=== PATIENT | male | born 1960 | race Caucasian/White ===

== ENCOUNTER 2017-06-26 12:04 | Emergency (ER) | payer MEDICAID, OTHER ==
[~2017-06-26] VITALS: Ht 170.2 cm; Wt 83.6 kg
[2017-06-26 12:15] VITALS: BP 145/111
[2017-06-26] MEDS ORDERED: BUPIVACAINE 0.5% IV ONE (12:35)
[2017-06-26] MEDS ORDERED: EPINEPHRINE IV ONE (12:35)
[2017-06-26] MEDS ORDERED: BUPIVAcaine 0.5% inj/PF 30 ml vial IJ ONE (12:45)
[2017-06-26] MEDS ORDERED: CEPH-572 PO (13:06)
== END 2017-06-26 13:23 | disposition home or self-care (01) ==
LOC: ER 12:06
DX: L02.212 Cutaneous abscess of back [any part, except buttock and flank] (principal)
CPT/HCPCS: 10060; 99283; A6266; A6449; J3490; J0171

== ENCOUNTER 2018-10-17 01:08 | Inpatient (IN) | payer MEDICAID, OTHER ==
[2018-10-17] VITALS (14 sets, daily range): BP systolic 108–145; BP diastolic 62–88
[~2018-10-17] VITALS: Ht 170.2 cm; Wt 79.0 kg
[2018-10-17] MEDS ORDERED: aspirin 81mg tab.chew PO ONE (01:15)
[2018-10-17] MEDS ORDERED: LIDOcaine Viscous 15ml cup PO ONE (01:30)
[2018-10-17] MEDS ORDERED: famotidine 20mg tablet PO ONE (01:30)
[2018-10-17] MEDS ORDERED: mag hydrox/Alum hydrox/simeth 30ml oral suspension PO ONE (01:30)
[2018-10-17] MEDS ORDERED: aspirin 325mg tablet PO ONE (01:30)
[2018-10-17 01:37] LABS: BASOPHILS # (AUTO) 0.1 X10'3 (0-0.2); BASOPHILS % (AUTO) 0.6 % (0-1); EOSINOPHILS # (AUTO) 0.2 X10'3 (0-0.9); EOSINOPHILS % (AUTO) 2.2 % (0-6); HEMATOCRIT 47.4 % (42.0-52.0); HEMOGLOBIN 16.5 g/dl (14.0-17.9); LYMPHOCYTES # (AUTO) 1.8 X10'3 (1.1-4.8); MEAN CORPUSCULAR HEMOGLOBIN 31.3 PG (27.0-31.0); MEAN CORPUSCULAR HGB CONC 34.7 g/dL (33.0-36.5); MEAN CORPUSCULAR VOLUME 90.1 FL (78-98); MEAN PLATELET VOLUME 8.6 FL (7.4-10.4); MONOCYTES % (AUTO) 9.4 % (2-12); NEUTROPHILS # (AUTO) 7.4 X10'3 (1.8-7.7); NEUTROPHILS % (AUTO) 70.8 % (42-75); PLATELET COUNT 219 X10'3 (140-440); RED BLOOD COUNT 5.26 X10'6 (4.70-6.10); RED CELL DISTRIBUTION WIDTH 13.8 % (11.5-14.5); WHITE BLOOD COUNT 10.4 X10'3 (4.5-11.0)
[2018-10-17 01:42] LABS: PARTIAL THROMBOPLASTIN TIME 27 SECONDS (22-32)
[2018-10-17 01:44] LABS: ALANINE AMINOTRANSFERASE 44 U/L (12-78); ALBUMIN 3.7 G/DL (3.4-5.0); ALBUMIN/GLOBULIN RATIO 1.1 (1.1-1.5); ALKALINE PHOSPHATASE 117 IU/L (46-116); ANION GAP 9 (8-16); ASPARTATE AMINO TRANSFERASE 18 U/L (10-37); BILIRUBIN,TOTAL 0.5 MG/DL (0.1-1.0); BLOOD UREA NITROGEN 16 MG/DL (7-18); BUN/CREATININE RATIO 15.2 (5.4-32.0); CALCIUM 8.7 MG/DL (8.5-10.1); CHLORIDE 107 MMOL/L (99-107); CREATININE 1.05 MG/DL (0.60-1.10); GLUCOSE 124 MG/DL (70-104); POTASSIUM 3.9 MMOL/L (3.5-5.1); SODIUM 141 MMOL/L (135-145); TOTAL PROTEIN 7.1 G/DL (6.4-8.2); eGFR 73 ML/MIN
[2018-10-17] MEDS ORDERED: heparin 10,000 units/1 ML INJ IV PRN ×2 (03:30→03:50)
[2018-10-17] MEDS ORDERED: heparin 10,000 units/1 ML INJ IV ONE ×3 (03:30→03:50)
[2018-10-17] MEDS ORDERED: LORazepam 2 mg/ml vial IV ONE (03:35)
[2018-10-17] MEDS ORDERED: heparin 25,000 UNIT/250ml bag 250 ML IV SCH (03:48)
[2018-10-17] MEDS ORDERED: magnesium 4gm in 100ml NS 100 ML IV PRN (03:50)
[2018-10-17] MEDS ORDERED: magnesium 2GM in 50ml NS 50 ML IV PRN (03:50)
[2018-10-17] MEDS ORDERED: potassium CL 10mEq/100ml bag 100 ML IV PRN ×2 (03:50)
[2018-10-17] MEDS ORDERED: magnesium Cl slow-release 64mg tablet PO PRN (03:50)
[2018-10-17] MEDS ORDERED: acetaminophen 650mg rectal suppository RC PRN (03:50)
[2018-10-17] MEDS ORDERED: bisacodyl 10mg suppository rectal RC PRN (03:50)
[2018-10-17] MEDS ORDERED: potassium Cl 20 mEq SR tablet PO PRN ×2 (03:50)
[2018-10-17] MEDS: heparin 25,000 UNIT/250ml bag 250 ML IV SCH (03:51)
[2018-10-17] MEDS: nitroGLYCERIN 0.4mg SUBLingual tab SL PRN ×2 (04:03→04:17)
--- NOTE | 2018-10-17 04:32 | NUR ---
Patient arrived from ER on a gurney, he was able to walk to hospital bed w/o problem. He is A&Ox3, KYLE and is appropriate. I will continue to monitor.
[2018-10-17 04:45] LABS: BASOPHILS % (AUTO) 0.4 % (0-1); EOSINOPHILS # (AUTO) 0.2 X10'3 (0-0.9); EOSINOPHILS % (AUTO) 1.9 % (0-6); HEMATOCRIT 43.7 % (42.0-52.0); HEMOGLOBIN 15.2 g/dl (14.0-17.9); LYMPHOCYTES # (AUTO) 1.9 X10'3 (1.1-4.8); LYMPHOCYTES % (AUTO) 19.7 % (21-51); MEAN CORPUSCULAR HEMOGLOBIN 31.5 PG (27.0-31.0); MEAN CORPUSCULAR HGB CONC 34.7 g/dL (33.0-36.5); MEAN CORPUSCULAR VOLUME 90.6 FL (78-98); MONOCYTES # (AUTO) 0.8 X10'3 (0-0.9); MONOCYTES % (AUTO) 7.8 % (2-12); NEUTROPHILS % (AUTO) 70.2 % (42-75); PLATELET COUNT 210 X10'3 (140-440); RED BLOOD COUNT 4.82 X10'6 (4.70-6.10); RED CELL DISTRIBUTION WIDTH 13.8 % (11.5-14.5); WHITE BLOOD COUNT 9.9 X10'3 (4.5-11.0)
[2018-10-17] MEDS ORDERED: LORazepam 2 mg/ml vial IV PRN (04:45)
[2018-10-17] MEDS: normal saline 1000ml 1,000 ML IV SCH ×3 (05:21→23:48)
[2018-10-17 05:56] LABS: CHOL/HDL RATIO 4.5 (0.00-4.99); CHOLESTEROL 176 MG/DL (0-200); HDL CHOLESTEROL 39 MG/DL (35-60); LDL CHOLESTEROL 115 MG/DL (50-100); TRIGLYCERIDES 83 MG/DL (20-135)
--- NOTE | 2018-10-17 06:10 | NUR ---
Patient's Troponin 0.30, I paged Dr. Reyes.
--- NOTE | 2018-10-17 06:16 | NUR ---
Dr. Reyes cld back and I informed him of Troponin 0.30. he will call for cardiology consult.
--- NOTE | 2018-10-17 06:30 | NUR ---
Patient in room PCU 3017. I have received report from Adwoa and had the opportunity to ask questions and assume patient care.
[2018-10-17] MEDS ORDERED: NO HOME MEDS (07:39)
[2018-10-17] MEDS: K and/or MAG REPLACEMENT MC SCH (08:00)
[2018-10-17] MEDS: multivitamins, therapeutics tablet PO SCH (08:13)
[2018-10-17] MEDS: thiamine 100mg tablet PO SCH (08:13)
[2018-10-17] MEDS: folic acid 1mg tablet PO SCH (08:14)
[2018-10-17] MEDS ORDERED: nitroGLYCERIN 0.4mg/hour patch TD ONE (09:00)
[2018-10-17] MEDS ORDERED: PRED5DRO23 RIGHTEYE (10:48)
[2018-10-17] MEDS ORDERED: VIG0.5OS RIGHTEYE (10:50)
--- NOTE | 2018-10-17 10:53 | NUR ---
PAGER ID: [phone] MESSAGE: [id number] Maki Jarrett. Please review med req, brought in pt's eye drops, says he needs them. Marisa [phone]
[2018-10-17] MEDS: LORazepam 1 MG tablet PO PRN ×2 (11:45→18:51)
[2018-10-17] MEDS: moxifloxacin 0.5% ophthalmic drops 3ml RIGHTEYE SCH ×3 (12:19→20:30)
[2018-10-17] MEDS: prednisoLONE acetate 1% ophth susp 5ml RIGHTEYE SCH ×3 (12:20→20:29)
--- NOTE | 2018-10-17 13:55 | NUR ---
pt report received from Marisa SCOTT; all questions answered.
--- NOTE | 2018-10-17 13:58 | NUR ---
Report and stocked meds given to Katey SCOTT
[2018-10-17] MEDS ORDERED: LIDOcaine 1% (10mg/ml)w/preservative injection 20ml MDV ONE (14:27)
[2018-10-17] MEDS ORDERED: iohexol 350 MG/ML 50ML vial IV ONE (14:27)
[2018-10-17] MEDS ORDERED: fentaNYL/PF 50MCG/1 ML 2ML syringe ONE ×2 (14:27→15:19)
[2018-10-17] MEDS ORDERED: midazolam 2 mg/2 ml injection ONE ×2 (14:27→15:19)
[2018-10-17] MEDS ORDERED: iohexol 350MG/ML 100ml bottle IV ONE (14:27)
[2018-10-17] MEDS ORDERED: nitroGLYCERIN 0.4mg SUBLingual tab SL PRN (16:15)
[2018-10-17] MEDS ORDERED: proCHLORperazine 10 MG/2 ml inj IV PRN (16:15)
--- NOTE | 2018-10-17 16:15 | NUR ---
pt arrived to floor via hospital bed; VSS. NS started at 100mL/hr. rt groin soft, no hematoma, no bruising, and no drainage present; strong pedal pulses. pt attached to cardiac monitoring.
[2018-10-17] MEDS: ondansetron/PF 4mg/2ml inj IV PRN (17:18)
--- NOTE | 2018-10-17 18:17 | NUR ---
Patient in room MED 316. I have received report from Van SCOTT and had the opportunity to ask questions and assume patient care.
[2018-10-17] MEDS: clopidogrel 75mg tablet PO SCH (18:23)
--- NOTE | 2018-10-17 18:38 | NUR ---
Patient report given, questions answered & plan of care reviewed with Lynne SCOTT.
[2018-10-17] MEDS: HYDROcodone/acetaminophen 10/325mg tab PO PRN (18:52)
[2018-10-17] MEDS: carVEDilol 3.125mg tablet PO SCH (20:28)
[2018-10-17] MEDS: acetaminophen 325mg tablet PO PRN (20:39)
[2018-10-18] VITALS (12 sets, daily range): BP systolic 94–129; BP diastolic 57–91
[2018-10-18] MEDS: heparin 25,000 UNIT/250ml bag 250 ML IV SCH ×2 (04:29→13:45)
[2018-10-18 05:54] LABS: BASOPHILS % (AUTO) 0.4 % (0-1); EOSINOPHILS % (AUTO) 0.3 % (0-6); HEMATOCRIT 43.3 % (42.0-52.0); HEMOGLOBIN 14.9 g/dl (14.0-17.9); LYMPHOCYTES # (AUTO) 1.5 X10'3 (1.1-4.8); LYMPHOCYTES % (AUTO) 13.4 % (21-51); MEAN CORPUSCULAR HEMOGLOBIN 30.9 PG (27.0-31.0); MEAN CORPUSCULAR HGB CONC 34.3 g/dL (33.0-36.5); MEAN PLATELET VOLUME 8.6 FL (7.4-10.4); MONOCYTES % (AUTO) 8.7 % (2-12); NEUTROPHILS # (AUTO) 8.9 X10'3 (1.8-7.7); NEUTROPHILS % (AUTO) 77.2 % (42-75); PLATELET COUNT 209 X10'3 (140-440); RED BLOOD COUNT 4.81 X10'6 (4.70-6.10); RED CELL DISTRIBUTION WIDTH 13.7 % (11.5-14.5); WHITE BLOOD COUNT 11.5 X10'3 (4.5-11.0)
[2018-10-18 05:55] LABS: ALANINE AMINOTRANSFERASE 40 U/L (12-78); ALBUMIN 3.3 G/DL (3.4-5.0); ALKALINE PHOSPHATASE 81 IU/L (46-116); ANION GAP 8 (8-16); ASPARTATE AMINO TRANSFERASE 23 U/L (10-37); BILIRUBIN,TOTAL 0.9 MG/DL (0.1-1.0); BLOOD UREA NITROGEN 12 MG/DL (7-18); BUN/CREATININE RATIO 14.3 (5.4-32.0); CALCIUM 8.3 MG/DL (8.5-10.1); CHLORIDE 106 MMOL/L (99-107); CREATININE 0.84 MG/DL (0.60-1.10); GLUCOSE 113 MG/DL (70-104); POTASSIUM 4.2 MMOL/L (3.5-5.1); SODIUM 139 MMOL/L (135-145); TOTAL CARBON DIOXIDE 24.7 MMOL/L (24-32); TOTAL PROTEIN 6.6 G/DL (6.4-8.2); eGFR > 90 ML/MIN
--- NOTE | 2018-10-18 06:13 | NUR ---
Problems reprioritized. Patient report given, questions answered & plan of care reviewed with Van SCOTT.
[2018-10-18] MEDS: clopidogrel 75mg tablet PO SCH (07:18)
[2018-10-18] MEDS: carVEDilol 3.125mg tablet PO SCH ×2 (07:18→20:52)
[2018-10-18] MEDS: folic acid 1mg tablet PO SCH (07:18)
[2018-10-18] MEDS: thiamine 100mg tablet PO SCH (07:18)
[2018-10-18] MEDS: aspirin 81mg tablet.DR PO SCH (07:19)
[2018-10-18] MEDS: atorvastatin 20mg tablet PO SCH (07:19)
[2018-10-18] MEDS: multivitamins, therapeutics tablet PO SCH (07:19)
[2018-10-18] MEDS: moxifloxacin 0.5% ophthalmic drops 3ml RIGHTEYE SCH ×4 (07:19→21:06)
[2018-10-18] MEDS: ondansetron/PF 4mg/2ml inj IV PRN (07:19)
[2018-10-18] MEDS: prednisoLONE acetate 1% ophth susp 5ml RIGHTEYE SCH ×4 (07:19→21:03)
[2018-10-18] MEDS: K and/or MAG REPLACEMENT MC SCH (08:00)
[2018-10-18] MEDS ORDERED: pneumococcal 23-VAL P-sac vacc 25 mcg/0.5ml vial IMVAC ONE (10:00)
--- NOTE | 2018-10-18 12:56 | NUR ---
faxed most recent EKG to Dr. Patricio' office per Dr. Hurd.
[2018-10-18] MEDS ORDERED: enoxaparin 60mg/0.6ml syringe SUBCUT STA (13:00)
[2018-10-18] MEDS ORDERED: nitroGLYCERIN-Tridil 50MG/D5W 250 ML IV SCH (13:00)
[2018-10-18] MEDS ORDERED: heparin 10,000 units/1 ML INJ IV ONE (13:10)
[2018-10-18] MEDS ORDERED: heparin 10,000 units/1 ML INJ IV PRN (13:10)
[2018-10-18] MEDS: HYDROcodone/acetaminophen 5mg/325mg tablet PO PRN (16:43)
--- NOTE | 2018-10-18 18:09 | NUR ---
Problems reprioritized. Patient report given, questions answered & plan of care reviewed with Lynne SCOTT.
--- NOTE | 2018-10-18 18:13 | NUR ---
Patient in room MED 316. I have received report from Van SCOTT and had the opportunity to ask questions and assume patient care.
--- NOTE | 2018-10-18 18:15 | NUR ---
Orientee documentation: I have reviewed and agree with interventions, assessments performed and documented by Fabi SCOTT. Orientee Medication Administration: For this medication-pass time frame, all medication were reviewed, dispensed, administered and documented per hospital policy by Fabi SCOTT .
[2018-10-18] MEDS: LORazepam 1 MG tablet PO PRN (20:51)
[2018-10-18] MEDS: acetaminophen 325mg tablet PO PRN (20:51)
[2018-10-19 02:00] VITALS: BP 98/63
[2018-10-19 02:30] LABS: BASOPHILS # (AUTO) 0.1 X10'3 (0-0.2); EOSINOPHILS # (AUTO) 0.1 X10'3 (0-0.9); EOSINOPHILS % (AUTO) 1.3 % (0-6); HEMATOCRIT 46.5 % (42.0-52.0); HEMOGLOBIN 16.2 g/dl (14.0-17.9); LYMPHOCYTES # (AUTO) 1.9 X10'3 (1.1-4.8); LYMPHOCYTES % (AUTO) 22.2 % (21-51); MEAN CORPUSCULAR HEMOGLOBIN 31.4 PG (27.0-31.0); MEAN CORPUSCULAR HGB CONC 34.9 g/dL (33.0-36.5); MEAN CORPUSCULAR VOLUME 90.1 FL (78-98); MEAN PLATELET VOLUME 8.5 FL (7.4-10.4); MONOCYTES # (AUTO) 0.9 X10'3 (0-0.9); NEUTROPHILS # (AUTO) 5.5 X10'3 (1.8-7.7); NEUTROPHILS % (AUTO) 64.5 % (42-75); PLATELET COUNT 197 X10'3 (140-440); RED BLOOD COUNT 5.16 X10'6 (4.70-6.10); RED CELL DISTRIBUTION WIDTH 13.6 % (11.5-14.5); WHITE BLOOD COUNT 8.5 X10'3 (4.5-11.0)
[2018-10-19 02:39] LABS: ALANINE AMINOTRANSFERASE 38 U/L (12-78); ALBUMIN 3.6 G/DL (3.4-5.0); ALKALINE PHOSPHATASE 80 IU/L (46-116); ANION GAP 7 (8-16); ASPARTATE AMINO TRANSFERASE 17 U/L (10-37); BILIRUBIN,TOTAL 0.7 MG/DL (0.1-1.0); BLOOD UREA NITROGEN 16 MG/DL (7-18); BUN/CREATININE RATIO 16.3 (5.4-32.0); CALCIUM 8.9 MG/DL (8.5-10.1); CHLORIDE 105 MMOL/L (99-107); CREATININE 0.98 MG/DL (0.60-1.10); GLUCOSE 114 MG/DL (70-104); MAGNESIUM 2.1 MG/DL (1.5-2.4); SODIUM 139 MMOL/L (135-145); TOTAL CARBON DIOXIDE 27.1 MMOL/L (24-32); TOTAL PROTEIN 7.3 G/DL (6.4-8.2); eGFR 79 ML/MIN
[2018-10-19 06:00] VITALS: BP_SYST 115; BP_SYST 126; BP_DIAS 71; BP_DIAS 77
--- NOTE | 2018-10-19 06:15 | NUR ---
Patient in room MED 316. I have received report from SONIA CAMARILLO and had the opportunity to ask questions and assume patient care.
--- NOTE | 2018-10-19 06:15 | NUR ---
Problems reprioritized. Patient report given, questions answered & plan of care reviewed with Van SCOTT.
[2018-10-19] MEDS: multivitamins, therapeutics tablet PO SCH (07:27)
[2018-10-19] MEDS: carVEDilol 3.125mg tablet PO SCH ×2 (07:27→20:00)
[2018-10-19] MEDS: pantoprazole 40mg Tablet.DR PO SCH (07:27)
[2018-10-19] MEDS: folic acid 1mg tablet PO SCH (07:27)
[2018-10-19] MEDS: atorvastatin 20mg tablet PO SCH (07:28)
[2018-10-19] MEDS: thiamine 100mg tablet PO SCH (07:28)
[2018-10-19] MEDS: clopidogrel 75mg tablet PO SCH (07:28)
[2018-10-19] MEDS: aspirin 81mg tablet.DR PO SCH (07:28)
[2018-10-19] MEDS: prednisoLONE acetate 1% ophth susp 5ml RIGHTEYE SCH ×4 (07:32→21:00)
[2018-10-19] MEDS: moxifloxacin 0.5% ophthalmic drops 3ml RIGHTEYE SCH ×4 (07:32→21:00)
[2018-10-19] MEDS: K and/or MAG REPLACEMENT MC SCH (08:00)
[2018-10-19] MEDS: LORazepam 1 MG tablet PO PRN ×2 (10:50→16:57)
[2018-10-19 11:00] VITALS: BP 108/74
[2018-10-19 15:00] VITALS: BP 114/81
[2018-10-19] MEDS: heparin 25,000 UNIT/250ml bag 250 ML IV SCH ×2 (16:15→23:40)
--- NOTE | 2018-10-19 17:56 | NUR ---
Orientee documentation: I have reviewed and agree with interventions, assessments performed and documented by Fabi SCOTT. Orientee Medication Administration: For this medication-pass time frame, all medication were reviewed, dispensed, administered and documented per hospital policy by Fabi SCOTT.
[2018-10-19 18:00] VITALS: BP 113/84
--- NOTE | 2018-10-19 18:14 | NUR ---
Problems reprioritized. Patient report given, questions answered & plan of care reviewed with Ashok SCTOT.
--- NOTE | 2018-10-19 18:30 | NUR ---
Assumed care from Katey SCOTT
[2018-10-19] MEDS ORDERED: aspirin 325mg tablet PO ONE (20:55)
[2018-10-19 22:00] VITALS: BP 112/75
[2018-10-19] MEDS: OXAZEpam 15mg capsule PO PRN (22:18)
[2018-10-20] VITALS (7 sets, daily range): BP systolic 94–147; BP diastolic 51–106
[2018-10-20 05:33] LABS: ALANINE AMINOTRANSFERASE 40 U/L (12-78); ALBUMIN 3.6 G/DL (3.4-5.0); ALBUMIN/GLOBULIN RATIO 0.9 (1.1-1.5); ALKALINE PHOSPHATASE 86 IU/L (46-116); ANION GAP 10 (8-16); ASPARTATE AMINO TRANSFERASE 24 U/L (10-37); BILIRUBIN,TOTAL 0.7 MG/DL (0.1-1.0); BLOOD UREA NITROGEN 23 MG/DL (7-18); BUN/CREATININE RATIO 22.3 (5.4-32.0); CALCIUM 9.2 MG/DL (8.5-10.1); CHLORIDE 103 MMOL/L (99-107); CREATININE 1.03 MG/DL (0.60-1.10); GLUCOSE 117 MG/DL (70-104); POTASSIUM 3.7 MMOL/L (3.5-5.1); SODIUM 138 MMOL/L (135-145); TOTAL CARBON DIOXIDE 25.1 MMOL/L (24-32); TOTAL PROTEIN 7.6 G/DL (6.4-8.2); eGFR 75 ML/MIN
[2018-10-20 05:46] LABS: BASOPHILS # (AUTO) 0.1 X10'3 (0-0.2); BASOPHILS % (AUTO) 0.5 % (0-1); EOSINOPHILS # (AUTO) 0.2 X10'3 (0-0.9); EOSINOPHILS % (AUTO) 1.6 % (0-6); HEMOGLOBIN 16.9 g/dl (14.0-17.9); LYMPHOCYTES # (AUTO) 2.3 X10'3 (1.1-4.8); LYMPHOCYTES % (AUTO) 23.1 % (21-51); MEAN CORPUSCULAR HEMOGLOBIN 31.6 PG (27.0-31.0); MEAN CORPUSCULAR HGB CONC 34.5 g/dL (33.0-36.5); MEAN CORPUSCULAR VOLUME 91.6 FL (78-98); MEAN PLATELET VOLUME 8.8 FL (7.4-10.4); MONOCYTES # (AUTO) 1.1 X10'3 (0-0.9); MONOCYTES % (AUTO) 11.2 % (2-12); NEUTROPHILS # (AUTO) 6.4 X10'3 (1.8-7.7); NEUTROPHILS % (AUTO) 63.6 % (42-75); PLATELET COUNT 216 X10'3 (140-440); RED BLOOD COUNT 5.34 X10'6 (4.70-6.10); RED CELL DISTRIBUTION WIDTH 13.9 % (11.5-14.5)
--- NOTE | 2018-10-20 06:53 | NUR ---
Report given to Kellee SCOTT.
[2018-10-20] MEDS: heparin 25,000 UNIT/250ml bag 250 ML IV SCH ×4 (07:30→17:22)
[2018-10-20] MEDS: K and/or MAG REPLACEMENT MC SCH (08:00)
[2018-10-20] MEDS: folic acid 1mg tablet PO SCH (08:32)
[2018-10-20] MEDS: atorvastatin 20mg tablet PO SCH (08:32)
[2018-10-20] MEDS: multivitamins, therapeutics tablet PO SCH (08:32)
[2018-10-20] MEDS: aspirin 81mg tablet.DR PO SCH (08:32)
[2018-10-20] MEDS: pantoprazole 40mg Tablet.DR PO SCH (08:32)
[2018-10-20] MEDS: thiamine 100mg tablet PO SCH (08:32)
[2018-10-20] MEDS: clopidogrel 75mg tablet PO SCH (08:32)
[2018-10-20] MEDS: carVEDilol 3.125mg tablet PO SCH ×2 (08:33→20:28)
[2018-10-20] MEDS: moxifloxacin 0.5% ophthalmic drops 3ml RIGHTEYE SCH ×4 (08:33→21:00)
[2018-10-20] MEDS: prednisoLONE acetate 1% ophth susp 5ml RIGHTEYE SCH ×4 (08:33→21:00)
--- NOTE | 2018-10-20 10:40 | NUR ---
heparin drip discontinued per Dr. Hurd's verbal order
--- NOTE | 2018-10-20 13:09 | NUR ---
PATIENT WALKED 400 FEET WITH STANDBY SUPERVISION, NO ISSUES OBSERVED. PATIENT DENIED CHEST PAIN DURING DURATION OF WALK.
--- NOTE | 2018-10-20 13:27 | NUR ---
PAGER ID: [phone] MESSAGE: [phone]: ROSALIND - eye drops are supposed to be tapered down week after week. do you mind if I change the order to reflect the POC from eye surgeon? ty nurse Nohemi [phone]
--- NOTE | 2018-10-20 15:45 | NUR ---
Problems reprioritized. Patient report given, questions answered & plan of care reviewed with SONIA MENDOZA. PATIENT WILL TRANSFER TO ROOM 3010.
--- NOTE | 2018-10-20 16:43 | NUR ---
PAGER ID: [phone] MESSAGE: [phone] Pedro Jarrett I am getting an EKG for new onset of chest pain 07/04. SONIA Otto Ext [id number] Addendum: 10/20/18 at 1647 by Fam Deal RN order for 0.4mg nitro patch and heparin gtt
[2018-10-20] MEDS ORDERED: heparin 10,000 units/1 ML INJ IV ONE (16:50)
[2018-10-20] MEDS ORDERED: nitroGLYCERIN 0.4mg/hour patch TD ONE (16:50)
[2018-10-20] MEDS ORDERED: heparin 10,000 units/1 ML INJ IV PRN (16:50)
--- NOTE | 2018-10-20 16:57 | NUR ---
Reviewed by ER Docktor who said no STEMI, did not sign off though. Dr Hurd notified EKG was done.
--- NOTE | 2018-10-20 18:17 | NUR ---
Problems reprioritized. Patient report given, questions answered & plan of care reviewed with SONIA Jj.
--- NOTE | 2018-10-20 18:30 | NUR ---
Patient in room PCU 3010. I have received report from Fam SCOTT and had the opportunity to ask questions and assume patient care.
[2018-10-20] MEDS: lactobacillus rhamnosus 10,000 MMU CELLS/CAPSULE PO SCH (20:28)
[2018-10-20] MEDS: OXAZEpam 15mg capsule PO PRN (20:28)
[2018-10-20] MEDS: HYDROcodone/acetaminophen 5mg/325mg tablet PO PRN (20:29)
[2018-10-21] MEDS: HYDROcodone/acetaminophen 10/325mg tab PO PRN ×3 (00:04→19:53)
--- NOTE | 2018-10-21 00:30 | NUR ---
2330 Cardiac PTT resulted at 81. Infusion placed on hold X 60 minutes per protocol. Medicated f/nausea f/relief.
[2018-10-21] MEDS: heparin 25,000 UNIT/250ml bag 250 ML IV SCH ×2 (01:45→21:12)
[2018-10-21 03:00] VITALS: BP 99/74
--- NOTE | 2018-10-21 06:26 | NUR ---
Problems reprioritized. Patient report given, questions answered & plan of care reviewed with Graeme SCOTT.
--- NOTE | 2018-10-21 06:33 | NUR ---
Patient in room PCU 3010. I have received report from Анна SCOTT and had the opportunity to ask questions and assume patient care.
[2018-10-21 06:59] LABS: BASOPHILS # (AUTO) 0.1 X10'3 (0-0.2); BASOPHILS % (AUTO) 0.9 % (0-1); EOSINOPHILS # (AUTO) 0.1 X10'3 (0-0.9); EOSINOPHILS % (AUTO) 1.3 % (0-6); HEMATOCRIT 49.5 % (42.0-52.0); HEMOGLOBIN 17.4 g/dl (14.0-17.9); LYMPHOCYTES # (AUTO) 2.3 X10'3 (1.1-4.8); LYMPHOCYTES % (AUTO) 21.7 % (21-51); MEAN CORPUSCULAR HEMOGLOBIN 31.5 PG (27.0-31.0); MEAN CORPUSCULAR HGB CONC 35.1 g/dL (33.0-36.5); MEAN CORPUSCULAR VOLUME 89.6 FL (78-98); MEAN PLATELET VOLUME 8.5 FL (7.4-10.4); MONOCYTES # (AUTO) 1.1 X10'3 (0-0.9); MONOCYTES % (AUTO) 10.5 % (2-12); NEUTROPHILS % (AUTO) 65.6 % (42-75); PLATELET COUNT 224 X10'3 (140-440); RED BLOOD COUNT 5.52 X10'6 (4.70-6.10); RED CELL DISTRIBUTION WIDTH 13.7 % (11.5-14.5); WHITE BLOOD COUNT 10.7 X10'3 (4.5-11.0)
[2018-10-21 07:00] VITALS: BP 95/53
[2018-10-21 07:15] LABS: ALANINE AMINOTRANSFERASE 47 U/L (12-78); ALBUMIN 3.8 G/DL (3.4-5.0); ALKALINE PHOSPHATASE 88 IU/L (46-116); ANION GAP 9 (8-16); ASPARTATE AMINO TRANSFERASE 27 U/L (10-37); BILIRUBIN,TOTAL 0.8 MG/DL (0.1-1.0); BLOOD UREA NITROGEN 21 MG/DL (7-18); BUN/CREATININE RATIO 19.1 (5.4-32.0); CALCIUM 9.1 MG/DL (8.5-10.1); CHLORIDE 104 MMOL/L (99-107); GLUCOSE 116 MG/DL (70-104); MAGNESIUM 1.9 MG/DL (1.5-2.4); POTASSIUM 4.3 MMOL/L (3.5-5.1); SODIUM 138 MMOL/L (135-145); TOTAL CARBON DIOXIDE 24.8 MMOL/L (24-32); TOTAL PROTEIN 7.7 G/DL (6.4-8.2); eGFR 69 ML/MIN
[2018-10-21] MEDS: K and/or MAG REPLACEMENT MC SCH (08:00)
[2018-10-21] MEDS: lactobacillus rhamnosus 10,000 MMU CELLS/CAPSULE PO SCH ×2 (08:19→19:53)
[2018-10-21] MEDS: multivitamins, therapeutics tablet PO SCH (08:19)
[2018-10-21] MEDS: thiamine 100mg tablet PO SCH (08:19)
[2018-10-21] MEDS: clopidogrel 75mg tablet PO SCH (08:19)
[2018-10-21] MEDS: carVEDilol 3.125mg tablet PO SCH ×2 (08:19→19:53)
[2018-10-21] MEDS: pantoprazole 40mg Tablet.DR PO SCH (08:19)
[2018-10-21] MEDS: aspirin 81mg tablet.DR PO SCH (08:19)
[2018-10-21] MEDS: atorvastatin 20mg tablet PO SCH (08:19)
[2018-10-21] MEDS: prednisoLONE acetate 1% ophth susp 5ml RIGHTEYE SCH ×4 (08:20→19:54)
[2018-10-21] MEDS: moxifloxacin 0.5% ophthalmic drops 3ml RIGHTEYE SCH ×4 (08:20→19:54)
[2018-10-21] MEDS: folic acid 1mg tablet PO SCH (08:32)
[2018-10-21] MEDS: HYDROcodone/acetaminophen 5mg/325mg tablet PO PRN (08:32)
[2018-10-21 11:00] VITALS: BP 112/80
[2018-10-21 15:00] VITALS: BP 132/95
[2018-10-21] MEDS: OXAZEpam 15mg capsule PO PRN (17:02)
--- NOTE | 2018-10-21 17:57 | NUR ---
Orientee documentation: I have reviewed and agree with all interventions, assessments performed and documented by Dasha SCOTT. Orientee Medication Administration: For this medication-pass time frame, all medication were reviewed, dispensed, administered and documented per hospital policy by Dasha SCOTT.
--- NOTE | 2018-10-21 18:28 | NUR ---
Problems reprioritized. Patient report given, questions answered & plan of care reviewed with Angelique SCOTT.
[2018-10-21 19:00] VITALS: BP 122/86
[2018-10-21 23:00] VITALS: BP 110/84
[2018-10-22] MEDS: HYDROcodone/acetaminophen 10/325mg tab PO PRN ×2 (02:52→08:00)
[2018-10-22 03:00] VITALS: BP 106/76
[2018-10-22 05:32] LABS: ALANINE AMINOTRANSFERASE 58 U/L (12-78); ALBUMIN 3.9 G/DL (3.4-5.0); ALKALINE PHOSPHATASE 89 IU/L (46-116); ANION GAP 9 (8-16); ASPARTATE AMINO TRANSFERASE 28 U/L (10-37); BILIRUBIN,TOTAL 0.8 MG/DL (0.1-1.0); BLOOD UREA NITROGEN 21 MG/DL (7-18); BUN/CREATININE RATIO 19.3 (5.4-32.0); CALCIUM 9.1 MG/DL (8.5-10.1); CHLORIDE 102 MMOL/L (99-107); CREATININE 1.09 MG/DL (0.60-1.10); GLUCOSE 124 MG/DL (70-104); POTASSIUM 4.2 MMOL/L (3.5-5.1); SODIUM 139 MMOL/L (135-145); TOTAL CARBON DIOXIDE 28.1 MMOL/L (24-32); TOTAL PROTEIN 7.7 G/DL (6.4-8.2); eGFR 70 ML/MIN
[2018-10-22] MEDS: heparin 25,000 UNIT/250ml bag 250 ML IV SCH (05:45)
[2018-10-22 05:52] LABS: BASOPHILS % (AUTO) 0.4 % (0-1); EOSINOPHILS # (AUTO) 0.2 X10'3 (0-0.9); EOSINOPHILS % (AUTO) 1.8 % (0-6); HEMATOCRIT 49.1 % (42.0-52.0); HEMOGLOBIN 16.9 g/dl (14.0-17.9); LYMPHOCYTES # (AUTO) 2.3 X10'3 (1.1-4.8); MEAN CORPUSCULAR HEMOGLOBIN 31.3 PG (27.0-31.0); MEAN CORPUSCULAR HGB CONC 34.4 g/dL (33.0-36.5); MEAN CORPUSCULAR VOLUME 90.9 FL (78-98); MEAN PLATELET VOLUME 8.5 FL (7.4-10.4); MONOCYTES # (AUTO) 1.1 X10'3 (0-0.9); MONOCYTES % (AUTO) 9.8 % (2-12); NEUTROPHILS # (AUTO) 7.9 X10'3 (1.8-7.7); PLATELET COUNT 239 X10'3 (140-440); RED CELL DISTRIBUTION WIDTH 13.7 % (11.5-14.5); WHITE BLOOD COUNT 11.7 X10'3 (4.5-11.0)
--- NOTE | 2018-10-22 06:25 | NUR ---
Patient in room PCU 3010. I have received report from Angelique SCOTT and had the opportunity to ask questions and assume patient care. Patient awake in bed with no complaints at this time. All immediate needs met.
[2018-10-22 07:00] VITALS: BP 118/79
[2018-10-22] MEDS: multivitamins, therapeutics tablet PO SCH (07:59)
[2018-10-22] MEDS: pantoprazole 40mg Tablet.DR PO SCH (07:59)
[2018-10-22] MEDS: thiamine 100mg tablet PO SCH (07:59)
[2018-10-22] MEDS: atorvastatin 20mg tablet PO SCH (07:59)
[2018-10-22] MEDS: aspirin 81mg tablet.DR PO SCH (07:59)
[2018-10-22] MEDS: folic acid 1mg tablet PO SCH (07:59)
[2018-10-22] MEDS: lactobacillus rhamnosus 10,000 MMU CELLS/CAPSULE PO SCH ×2 (07:59→21:42)
[2018-10-22] MEDS: prednisoLONE acetate 1% ophth susp 5ml RIGHTEYE SCH ×4 (07:59→21:44)
[2018-10-22] MEDS: clopidogrel 75mg tablet PO SCH (07:59)
[2018-10-22] MEDS: carVEDilol 3.125mg tablet PO SCH ×2 (07:59→21:44)
[2018-10-22] MEDS: moxifloxacin 0.5% ophthalmic drops 3ml RIGHTEYE SCH ×4 (07:59→21:45)
[2018-10-22] MEDS: K and/or MAG REPLACEMENT MC SCH (08:07)
[2018-10-22 11:00] VITALS: BP 115/78
[2018-10-22] MEDS: acetaminophen 325mg tablet PO PRN ×2 (11:40→21:43)
[2018-10-22] MEDS: OXAZEpam 15mg capsule PO PRN (12:39)
[2018-10-22 15:00] VITALS: BP 129/98
[2018-10-22] MEDS: HYDROcodone/acetaminophen 5mg/325mg tablet PO PRN (16:59)
[2018-10-22 18:00] VITALS: BP 144/94
--- NOTE | 2018-10-22 18:34 | NUR ---
Problems reprioritized. Patient report given, questions answered & plan of care reviewed with SONIA King.
--- NOTE | 2018-10-22 18:37 | NUR ---
Patient in room PCU 3010. I have received report from Alisa/Dasha RNs and had the opportunity to ask questions and assume patient care.
--- NOTE | 2018-10-22 18:47 | NUR ---
Problems reprioritized. Patient report given, questions answered & plan of care reviewed with Fernando SCOTT. Patient stable at transfer of care.
--- NOTE | 2018-10-22 18:47 | NUR ---
Orientee documentation: I have reviewed and agree with all interventions, assessments performed and documented by SONIA Lou. Orientee Medication Administration: For this medication-pass time frame, all medication were reviewed, dispensed, administered and documented per hospital policy by SONIA Lou.
[2018-10-22 22:00] VITALS: BP 135/92
--- NOTE | 2018-10-23 00:41 | NUR ---
PTT was 50. No rate change. Still at 800
[2018-10-23 02:00] VITALS: BP 114/77
[2018-10-23] MEDS: heparin 25,000 UNIT/250ml bag 250 ML IV SCH (03:22)
--- NOTE | 2018-10-23 06:07 | NUR ---
Problems reprioritized. Patient report given, questions answered & plan of care reviewed with Alisa/Dasha RNs.
--- NOTE | 2018-10-23 06:29 | NUR ---
Patient in room PCU 3010. I have received report from Fernando SCOTT and had the opportunity to ask questions and assume patient care. Patient asleep in bed and resting comfortably. All immediate needs met at this time.
--- NOTE | 2018-10-23 06:30 | NUR ---
Patient in room PCU 3010. I have received report from SONIA King and had the opportunity to ask questions and assume patient care. Pt in bed, sleeping. No apparent distress noted.
[2018-10-23 07:00] VITALS: BP 117/81
[2018-10-23] MEDS: carVEDilol 3.125mg tablet PO SCH ×2 (07:52→20:09)
[2018-10-23] MEDS: clopidogrel 75mg tablet PO SCH (07:52)
[2018-10-23] MEDS: folic acid 1mg tablet PO SCH (07:52)
[2018-10-23] MEDS: atorvastatin 20mg tablet PO SCH (07:52)
[2018-10-23] MEDS: multivitamins, therapeutics tablet PO SCH (07:52)
[2018-10-23] MEDS: lactobacillus rhamnosus 10,000 MMU CELLS/CAPSULE PO SCH ×2 (07:52→20:08)
[2018-10-23] MEDS: pantoprazole 40mg Tablet.DR PO SCH (07:52)
[2018-10-23] MEDS: aspirin 81mg tablet.DR PO SCH (07:52)
[2018-10-23] MEDS: moxifloxacin 0.5% ophthalmic drops 3ml RIGHTEYE SCH ×4 (07:53→20:08)
[2018-10-23] MEDS: prednisoLONE acetate 1% ophth susp 5ml RIGHTEYE SCH ×4 (07:53→20:09)
[2018-10-23] MEDS: K and/or MAG REPLACEMENT MC SCH (08:00)
[2018-10-23] MEDS: thiamine 100mg tablet PO SCH (08:02)
[2018-10-23] MEDS: acetaminophen 325mg tablet PO PRN ×2 (08:03→18:48)
[2018-10-23 11:00] VITALS: BP 128/89
[2018-10-23 15:00] VITALS: BP 125/84
--- NOTE | 2018-10-23 18:15 | NUR ---
Problems reprioritized. Patient report given, questions answered & plan of care reviewed with Chely SCOTT. Patient stable at transfer of care.
--- NOTE | 2018-10-23 18:15 | NUR ---
Patient in room PCU 3010. I have received report from Alisa SCOTT and had the opportunity to ask questions and assume patient care.
[2018-10-23 19:00] VITALS: BP 118/92
[2018-10-23 19:28] LABS: ALBUMIN 3.8 G/DL (3.4-5.0); ANION GAP 9 (8-16); BLOOD UREA NITROGEN 22 MG/DL (7-18); BUN/CREATININE RATIO 19.1 (5.4-32.0); CALCIUM 8.9 MG/DL (8.5-10.1); CHLORIDE 104 MMOL/L (99-107); CREATININE 1.15 MG/DL (0.60-1.10); GLUCOSE 125 MG/DL (70-104); POTASSIUM 3.9 MMOL/L (3.5-5.1); SODIUM 139 MMOL/L (135-145); TOTAL CARBON DIOXIDE 25.9 MMOL/L (24-32); eGFR 66 ML/MIN
[2018-10-23 19:32] LABS: BASOPHILS % (AUTO) 0.5 % (0-1); EOSINOPHILS # (AUTO) 0.2 X10'3 (0-0.9); EOSINOPHILS % (AUTO) 1.9 % (0-6); HEMATOCRIT 47.8 % (42.0-52.0); HEMOGLOBIN 16.6 g/dl (14.0-17.9); LYMPHOCYTES # (AUTO) 2.1 X10'3 (1.1-4.8); LYMPHOCYTES % (AUTO) 19.6 % (21-51); MEAN CORPUSCULAR HEMOGLOBIN 31.9 PG (27.0-31.0); MEAN CORPUSCULAR HGB CONC 34.8 g/dL (33.0-36.5); MEAN CORPUSCULAR VOLUME 91.6 FL (78-98); MEAN PLATELET VOLUME 8.7 FL (7.4-10.4); MONOCYTES % (AUTO) 9.5 % (2-12); NEUTROPHILS # (AUTO) 7.2 X10'3 (1.8-7.7); NEUTROPHILS % (AUTO) 68.5 % (42-75); PLATELET COUNT 229 X10'3 (140-440); RED BLOOD COUNT 5.21 X10'6 (4.70-6.10); RED CELL DISTRIBUTION WIDTH 13.8 % (11.5-14.5); WHITE BLOOD COUNT 10.6 X10'3 (4.5-11.0)
--- NOTE | 2018-10-23 21:08 | NUR ---
PAGER ID: [phone] MESSAGE: [phone] Pedro Jarrett- Patient currently awaiting a bed @ [facility] tele unit. Just received a call from [facility] & there is a bed available for him tonight. She is requesting an addendum to D/C summary of the last 24 hours. Please advise. Chely [phone]
[2018-10-23 23:00] VITALS: BP 110/79
[2018-10-24 03:00] VITALS: BP 111/76
--- NOTE | 2018-10-24 03:45 | NUR ---
Bed is still available. [facility] expected grain picker time [id number] 10/24/18
--- NOTE | 2018-10-24 05:10 | NUR ---
Report called to Karal SCOTT at [facility]
[2018-10-24 06:00] VITALS: BP 134/89
--- NOTE | 2018-10-24 06:00 | NUR ---
Problems reprioritized. Patient report given, questions answered & plan of care reviewed with Alisa MYLES & Jyotsna Myles.
[2018-10-24] MEDS: OXAZEpam 15mg capsule PO PRN (06:43)
[2018-10-24] MEDS: acetaminophen 325mg tablet PO PRN (06:43)
--- NOTE | 2018-10-24 07:20 | NUR ---
PAGER ID: [phone] MESSAGE: Alisa HOLLY [phone]. RE: Pedro Jarrett [phone]. Patient is transferring to [facility] today via [facility]. Heparin gtt running and [facility] will not transport patient on a drip. I have contacted case management. Please advise regarding heparin gtt.
[2018-10-24] MEDS: K and/or MAG REPLACEMENT MC SCH (08:00)
[2018-10-24] MEDS: prednisoLONE acetate 1% ophth susp 5ml RIGHTEYE SCH (08:08)
[2018-10-24] MEDS: aspirin 81mg tablet.DR PO SCH (08:09)
[2018-10-24] MEDS: thiamine 100mg tablet PO SCH (08:09)
[2018-10-24] MEDS: clopidogrel 75mg tablet PO SCH (08:09)
[2018-10-24] MEDS: folic acid 1mg tablet PO SCH (08:09)
[2018-10-24] MEDS: multivitamins, therapeutics tablet PO SCH (08:09)
[2018-10-24] MEDS: carVEDilol 3.125mg tablet PO SCH (08:09)
[2018-10-24] MEDS: moxifloxacin 0.5% ophthalmic drops 3ml RIGHTEYE SCH (08:09)
[2018-10-24] MEDS: pantoprazole 40mg Tablet.DR PO SCH (08:09)
[2018-10-24] MEDS: atorvastatin 20mg tablet PO SCH (08:09)
[2018-10-24] MEDS: lactobacillus rhamnosus 10,000 MMU CELLS/CAPSULE PO SCH (08:09)
[2018-10-24] MEDS: heparin 25,000 UNIT/250ml bag 250 ML IV SCH (08:36)
--- NOTE | 2018-10-24 08:40 | NUR ---
Orientee Medication Administration: For this medication-pass time frame, all medication were reviewed, dispensed, administered and documented per hospital policy by SONIA Rivas.
--- NOTE | 2018-10-24 08:40 | NUR ---
Patient stable for transfer to [facility] per MD orders. Patient picked up by [facility] ambulance for ground transportation. Patient accompanied by [facility] REBECA RN to monitor heparin gtt per request of [facility]. Patient VS: T: 97.8, HR: 62, RR: 20, 02: 97% on room air, RP 134/89. Report called to [facility] by [facility] RN, hCely. Transfer packet went with patient. [address] for heparin gtt. Telemetry monitoring discontinued. All patient belongings sent including home medications stored in pharmacy. Notified spouse, Lynne via telephone that patient was picked up for transport to [facility].
--- NOTE | 2018-10-24 09:46 | NUR ---
Patient being transported via [facility] to [facility]. PTT 44. Per Cardiac heparin gtt protocol patient heparin rate increased by 200 units/kg/hour and bolus of 40 units/kg. REBECA Coats present with patient and does not have Heparin bolus dose available. Pauly will increase heparin infusion to 1000 units/hour @ 10 mL/.
== END 2018-10-24 08:43 | disposition short-term general hospital (02) | DRG 190 ==
LOC: ER 01:08 → PCU 3S 04:33 → CMPBEDREQ 05:20 → MED 3N 16:15 → PCU 3S 10-20 16:37
PROVIDERS: ADMIT Family Medicine; ATTEND Internal Medicine
PROC: 4A023N7 Measurement of Cardiac Sampling and Pressure, Left Heart, Percutaneous Approach (ICD-10-PCS; principal; 2018-10-17)
PROC: B2111ZZ Fluoroscopy of Multiple Coronary Arteries using Low Osmolar Contrast (ICD-10-PCS; 2018-10-17)
PROC: B2151ZZ Fluoroscopy of Left Heart using Low Osmolar Contrast (ICD-10-PCS; 2018-10-17)
PROC: B3121ZZ Fluoroscopy of Left Subclavian Artery using Low Osmolar Contrast (ICD-10-PCS; 2018-10-17)
PROC: B41C1ZZ Fluoroscopy of Pelvic Arteries using Low Osmolar Contrast (ICD-10-PCS; 2018-10-17)
DX: I21.4 Non-ST elevation (NSTEMI) myocardial infarction (principal); I50.31 Acute diastolic (congestive) heart failure; I25.10 Atherosclerotic heart disease of native coronary artery without angina pectoris; F32.9 Major depressive disorder, single episode, unspecified; F41.9 Anxiety disorder, unspecified; F41.0 Panic disorder [episodic paroxysmal anxiety]; F12.90 Cannabis use, unspecified, uncomplicated; K21.9 Gastro-esophageal reflux disease without esophagitis; F43.10 Post-traumatic stress disorder, unspecified; Z79.82 Long term (current) use of aspirin; Z80.1 Family history of malignant neoplasm of trachea, bronchus and lung; Z82.49 Family history of ischemic heart disease and other diseases of the circulatory system; Z83.3 Family history of diabetes mellitus; Z98.41 Cataract extraction status, right eye; G44.40 Drug-induced headache, not elsewhere classified, not intractable; T46.3X5A Adverse effect of coronary vasodilators, initial encounter; Y92.238 Other place in hospital as the place of occurrence of the external cause; Z72.89 Other problems related to lifestyle; Z79.899 Other long term (current) drug therapy
CPT/HCPCS: 36415; 71045; 76700; 80048; 80053; 80061; 83735; 84484; 85025; 85610; 85730; 87081; 93005; 93306; 93459; 96365; 96375; 96376; 99152; 99153; 99285; A4620; A6258; C1760; C1769; G0378; J0780; J1644; J2001; J2060; J2250; J2405; J3010; J3490; J7030; Q9967

== ENCOUNTER 2019-04-24 09:14 | Emergency (ER) | payer MEDICAID ==
[~2019-04-24] VITALS: Ht 170.2 cm; Wt 80.9 kg
[~2019-04-24 09:14] MED LIST: PRED5DRO23 RIGHTEYE; VIG0.5OS RIGHTEYE
[2019-04-24] MEDS ORDERED: aspirin 81mg tab.chew PO ONE (09:20)
[2019-04-24] MEDS ORDERED: nitroGLYCERIN 0.4mg SUBLingual tab SL PRN (09:20)
[2019-04-24 09:51] LABS: BASOPHILS # (AUTO) 0.1 X10'3 (0-0.2); BASOPHILS % (AUTO) 0.7 % (0-1); EOSINOPHILS # (AUTO) 0.4 X10'3 (0-0.9); EOSINOPHILS % (AUTO) 4.2 % (0-6); HEMATOCRIT 45.8 % (42.0-52.0); HEMOGLOBIN 15.7 g/dl (14.0-17.9); LYMPHOCYTES # (AUTO) 2.5 X10'3 (1.1-4.8); LYMPHOCYTES % (AUTO) 26.3 % (21-51); MEAN CORPUSCULAR HEMOGLOBIN 30.6 PG (27.0-31.0); MEAN CORPUSCULAR HGB CONC 34.2 g/dL (33.0-36.5); MEAN CORPUSCULAR VOLUME 89.5 FL (78-98); MEAN PLATELET VOLUME 8.9 FL (7.4-10.4); MONOCYTES % (AUTO) 9.9 % (2-12); NEUTROPHILS # (AUTO) 5.7 X10'3 (1.8-7.7); NEUTROPHILS % (AUTO) 58.9 % (42-75); PLATELET COUNT 248 X10'3 (140-440); RED BLOOD COUNT 5.11 X10'6 (4.70-6.10); WHITE BLOOD COUNT 9.6 X10'3 (4.5-11.0)
[2019-04-24 10:18] LABS: ALANINE AMINOTRANSFERASE 59 U/L (12-78); ALBUMIN/GLOBULIN RATIO 1.3 (1.1-1.5); ALKALINE PHOSPHATASE 141 IU/L (46-116); ANION GAP 11 (8-16); ASPARTATE AMINO TRANSFERASE 39 U/L (10-37); BILIRUBIN,TOTAL 0.7 MG/DL (0.1-1.0); BLOOD UREA NITROGEN 15 MG/DL (7-18); BUN/CREATININE RATIO 16.9 (5.4-32.0); CALCIUM 8.6 MG/DL (8.5-10.1); CHLORIDE 107 MMOL/L (99-107); CREATININE 0.89 MG/DL (0.60-1.10); GLUCOSE 128 MG/DL (70-104); POTASSIUM 4.3 MMOL/L (3.5-5.1); SODIUM 142 MMOL/L (135-145); TOTAL CARBON DIOXIDE 24.5 MMOL/L (24-32); TOTAL PROTEIN 7.2 G/DL (6.4-8.2); eGFR 88 ML/MIN
[2019-04-24 13:17] VITALS: BP 96/67
== END 2019-04-24 13:19 | disposition home or self-care (01) ==
LOC: ER 09:14
DX: I20.8 Other forms of angina pectoris (principal); Z79.899 Other long term (current) drug therapy
CPT/HCPCS: 36415; 71045; 80053; 83880; 84484; 85025; 85610; 93005; 99284

== ENCOUNTER 2019-10-09 10:10 | Inpatient (IN) | payer MEDICAID ==
[~2019-10-09] VITALS: Ht 170.2 cm; Wt 25.9 kg
[2019-10-09 10:40] LABS: BASOPHILS % (AUTO) 0.6 % (0-1); EOSINOPHILS # (AUTO) 0.3 X10'3 (0-0.9); EOSINOPHILS % (AUTO) 3.5 % (0-6); HEMATOCRIT 45.6 % (42.0-52.0); HEMOGLOBIN 15.7 g/dl (14.0-17.9); LYMPHOCYTES # (AUTO) 1.8 X10'3 (1.1-4.8); MEAN CORPUSCULAR HEMOGLOBIN 32.1 PG (27.0-31.0); MEAN CORPUSCULAR HGB CONC 34.6 g/dL (33.0-36.5); MONOCYTES # (AUTO) 0.6 X10'3 (0-0.9); NEUTROPHILS % (AUTO) 64.9 % (42-75); PLATELET COUNT 189 X10'3 (140-440); RED CELL DISTRIBUTION WIDTH 13.9 % (11.5-14.5); WHITE BLOOD COUNT 7.8 X10'3 (4.5-11.0)
[2019-10-09 10:50] LABS: ALANINE AMINOTRANSFERASE 58 U/L (12-78); ALBUMIN 3.8 G/DL (3.4-5.0); ALBUMIN/GLOBULIN RATIO 1.1 (1.1-1.5); ALKALINE PHOSPHATASE 114 IU/L (46-116); ANION GAP 6 (8-16); ASPARTATE AMINO TRANSFERASE 42 U/L (10-37); BILIRUBIN,TOTAL 0.8 MG/DL (0.1-1.0); BLOOD UREA NITROGEN 11 MG/DL (7-18); BUN/CREATININE RATIO 11.5 (5.4-32.0); CALCIUM 8.5 MG/DL (8.5-10.1); CHLORIDE 103 MMOL/L (99-107); CREATININE 0.96 MG/DL (0.60-1.10); GLUCOSE 123 MG/DL (70-104); POTASSIUM 4.3 MMOL/L (3.5-5.1); SODIUM 136 MMOL/L (135-145); TOTAL CARBON DIOXIDE 27.2 MMOL/L (24-32); TOTAL PROTEIN 7.2 G/DL (6.4-8.2); eGFR 81 ML/MIN
[2019-10-09] MEDS ORDERED: aspirin 81mg tab.chew PO ONE (11:15)
[2019-10-09] MEDS ORDERED: CITA20TA28 PO (11:35)
[2019-10-09] MEDS ORDERED: HYDR-3686 PO (11:35)
[2019-10-09] MEDS ORDERED: CARV-50 PO (11:35)
[2019-10-09] MEDS ORDERED: ASPI-1265 PO (11:35)
[2019-10-09] MEDS ORDERED: BUPR150T6 PO (11:35)
[2019-10-09] MEDS ORDERED: ATOR20TA PO (11:35)
[2019-10-09] MEDS ORDERED: ISOS30TA9 PO (11:35)
[2019-10-09 11:54] LABS: PARTIAL THROMBOPLASTIN TIME 27 SECONDS (22-32)
--- NOTE | 2019-10-09 12:46 | NUR ---
SPOKE WITH PT'S AND GAVE HER THE PT'S BELONGINGS MINUS HIS CELLPHONE AND GLASSES.
[2019-10-09] MEDS ORDERED: ISOS60TA4 PO (12:58)
[2019-10-09] MEDS ORDERED: ATOR-2 PO (12:58)
[2019-10-09] MEDS ORDERED: ISOS30TA6 PO (13:07)
--- NOTE | 2019-10-09 13:25 | NUR ---
warehouse administrative assistant request chart review for possible admission to [facility] unit
[2019-10-09] MEDS ORDERED: ipratropium/albuterol 3ml nebule NEB PRN (13:35)
[2019-10-09] MEDS ORDERED: potassium Cl 20 mEq SR tablet PO PRN ×2 (13:35)
[2019-10-09] MEDS ORDERED: magnesium 2GM in 50ml NS 50 ML IV PRN (13:35)
[2019-10-09] MEDS ORDERED: acetaminophen 325mg tablet PO PRN (13:35)
[2019-10-09] MEDS ORDERED: potassium CL 10mEq/100ml bag 100 ML IV PRN ×2 (13:35)
[2019-10-09] MEDS ORDERED: aminophylline 250mg/10ml inj. IV PRN (13:35)
[2019-10-09] MEDS ORDERED: magnesium 4gm in 100ml NS 100 ML IV PRN (13:35)
[2019-10-09] MEDS ORDERED: mag hydrox/Alum hydrox/simeth 30ml oral suspension PO PRN (13:35)
[2019-10-09] MEDS ORDERED: magnesium hydroxide 30ml (MOM) UD suspension PO PRN (13:35)
[2019-10-09] MEDS ORDERED: metoprolol tartrate 1mg/ml inj IV PRN (13:35)
[2019-10-09] MEDS ORDERED: regadenoson 0.4mg/5ml syringe IV PRN (13:35)
[2019-10-09] MEDS ORDERED: ondansetron/PF 4mg/2ml inj IV PRN (13:35)
[2019-10-09] MEDS ORDERED: nitroGLYCERIN 0.4mg SUBLingual tab SL PRN (13:35)
--- NOTE | 2019-10-09 13:53 | NUR ---
Spoke with tech performing thiago scan who stated that he would be unable to complete scan today and would get to it tomorrow. Paged Dr. Reyes and requested patient be NPO after midnight tonight. Dr. Reyes agreed and gave telephone verbal order for HH diet or and NPO after midnight. Orders placed per MD request. Lavern SCOTT aware.
--- NOTE | 2019-10-09 14:30 | NUR ---
MD KATZ IN ROOM TALKING WITH PT
[2019-10-09] MEDS: hydrOXYzine 25 MG tablet PO SCH ×2 (16:00→23:45)
[2019-10-09 16:11] VITALS: BP 133/79
[2019-10-09 18:00] VITALS: BP 112/73
[2019-10-09] MEDS ORDERED: dronabinol 2.5mg capsule PO PRN (18:10)
--- NOTE | 2019-10-09 18:31 | NUR ---
Patient in room MED 313. I have received report from Jenniffer RN and had the opportunity to ask questions and assume patient care.
[2019-10-09] MEDS: normal saline 1000ml 1,000 ML IV SCH ×2 (19:45→23:44)
[2019-10-09] MEDS ORDERED: non-formulary drug (Isosorbide Mononitrate (Isosorbide Mononitrate Er) 1 TAB) PO SCH (20:00)
[2019-10-09] MEDS: K and/or MAG REPLACEMENT MC SCH (20:00)
[2019-10-09 22:00] VITALS: BP 106/65
[2019-10-10] VITALS (11 sets, daily range): BP systolic 103–137; BP diastolic 61–89
[2019-10-10 05:35] LABS: BASOPHILS % (AUTO) 0.3 % (0-1); EOSINOPHILS # (AUTO) 0.2 X10'3 (0-0.9); EOSINOPHILS % (AUTO) 2.1 % (0-6); HEMATOCRIT 46.6 % (42.0-52.0); HEMOGLOBIN 15.6 g/dl (14.0-17.9); LYMPHOCYTES # (AUTO) 1.8 X10'3 (1.1-4.8); MEAN CORPUSCULAR HEMOGLOBIN 31.5 PG (27.0-31.0); MEAN CORPUSCULAR HGB CONC 33.6 g/dL (33.0-36.5); MEAN CORPUSCULAR VOLUME 93.8 FL (78-98); MEAN PLATELET VOLUME 9.2 FL (7.4-10.4); MONOCYTES # (AUTO) 0.9 X10'3 (0-0.9); MONOCYTES % (AUTO) 9.9 % (2-12); NEUTROPHILS # (AUTO) 6.1 X10'3 (1.8-7.7); NEUTROPHILS % (AUTO) 67.7 % (42-75); PLATELET COUNT 171 X10'3 (140-440); RED BLOOD COUNT 4.96 X10'6 (4.70-6.10); RED CELL DISTRIBUTION WIDTH 13.9 % (11.5-14.5)
[2019-10-10 06:08] LABS: ALANINE AMINOTRANSFERASE 56 U/L (12-78); ALBUMIN 3.6 G/DL (3.4-5.0); ALBUMIN/GLOBULIN RATIO 1.1 (1.1-1.5); ALKALINE PHOSPHATASE 95 IU/L (46-116); ANION GAP 6 (8-16); ASPARTATE AMINO TRANSFERASE 43 U/L (10-37); BILIRUBIN,TOTAL 0.7 MG/DL (0.1-1.0); BLOOD UREA NITROGEN 12 MG/DL (7-18); BUN/CREATININE RATIO 12.4 (5.4-32.0); CALCIUM 7.9 MG/DL (8.5-10.1); CHLORIDE 106 MMOL/L (99-107); CHOL/HDL RATIO 3.1 (0.00-4.99); CHOLESTEROL 120 MG/DL (0-200); CREATININE 0.97 MG/DL (0.60-1.10); GLUCOSE 109 MG/DL (70-104); HDL CHOLESTEROL 39 MG/DL (35-60); LDL CHOLESTEROL 58 MG/DL (50-100); MAGNESIUM 2.1 MG/DL (1.5-2.4); POTASSIUM 4.1 MMOL/L (3.5-5.1); SODIUM 139 MMOL/L (135-145); TOTAL CARBON DIOXIDE 27.3 MMOL/L (24-32); TOTAL PROTEIN 6.9 G/DL (6.4-8.2); TRIGLYCERIDES 168 MG/DL (20-135); eGFR 80 ML/MIN
--- NOTE | 2019-10-10 06:27 | NUR ---
Problems reprioritized. Patient report given, questions answered & plan of care reviewed with Linda SCOTT.
--- NOTE | 2019-10-10 06:28 | NUR ---
Patient in room MED 313. I have received report from SONIA Dale and had the opportunity to ask questions and assume patient care.
[2019-10-10] MEDS: hydrOXYzine 25 MG tablet PO SCH (08:00)
[2019-10-10] MEDS ORDERED: atorvastatin 20mg tablet PO SCH (08:00)
[2019-10-10] MEDS ORDERED: citalopram 20mg tablet PO SCH (08:00)
[2019-10-10] MEDS ORDERED: aspirin 81mg tab.chew PO SCH (08:00)
[2019-10-10] MEDS ORDERED: enoxaparin 40mg/0.4ml syringe SQ SCH (08:00)
[2019-10-10] MEDS ORDERED: isosorbide mononitrate 30mg tab.SR.24H PO SCH (08:00)
[2019-10-10] MEDS ORDERED: buPROPion SR 150mg tablet PO SCH (08:00)
[2019-10-10] MEDS: K and/or MAG REPLACEMENT MC SCH (08:11)
[2019-10-10] MEDS: normal saline 1000ml 1,000 ML IV SCH (09:33)
--- NOTE | 2019-10-10 12:44 | NUR ---
PAGER ID: [phone] MESSAGE: adeola Poe. pt. Pedro Jarrett. patricia. thiago results were faxed to our unit if you wanted to come look at them. thank you. Linda [phone]
[2019-10-10] MEDS ORDERED: RANO500T3 PO (13:22)
--- NOTE | 2019-10-10 15:02 | NUR ---
pt. was discharged at 1445. pt. was wheeled down to lobby by staff and picked up by his daughter. pt. signed and understood all paperwork. pt. IV was d/c intact. pt. new meds were called into [facility] on [facility]. pt. 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 pt. left with all belongings.
== END 2019-10-10 14:45 | disposition home or self-care (01) | DRG 190 ==
LOC: ER 10:10 → ED HOLD 13:33 → MED 3N 16:08
PROVIDERS: ADMIT Family Medicine; ATTEND Family Medicine
PROC: 4A02XM4 Measurement of Cardiac Total Activity, External Approach (ICD-10-PCS; principal; 2019-10-10)
PROC: 3E033HZ Introduction of Radioactive Substance into Peripheral Vein, Percutaneous Approach (ICD-10-PCS; 2019-10-10)
DX: I21.4 Non-ST elevation (NSTEMI) myocardial infarction (principal); F41.0 Panic disorder [episodic paroxysmal anxiety]; Z20.828 Contact with and (suspected) exposure to other viral communicable diseases; F32.9 Major depressive disorder, single episode, unspecified; F41.9 Anxiety disorder, unspecified; Z79.899 Other long term (current) drug therapy; Z80.1 Family history of malignant neoplasm of trachea, bronchus and lung; Z82.49 Family history of ischemic heart disease and other diseases of the circulatory system; I25.2 Old myocardial infarction; Z83.3 Family history of diabetes mellitus; Z85.118 Personal history of other malignant neoplasm of bronchus and lung; Z98.41 Cataract extraction status, right eye
CPT/HCPCS: 36415; 71045; 78452; 80053; 80061; 83735; 83880; 84484; 85025; 85610; 85730; 87081; 87635; 93005; 93017; 93306; 94760; 97161; 97530; 99285; A9500; G0378; J1650; J2405; J2785; J7030

== ENCOUNTER 2020-05-28 13:31 | Emergency (ER) | payer MEDICAID ==
[~2020-05-28] VITALS: Ht 170.2 cm; Wt 75.9 kg
[~2020-05-28 13:31] MED LIST changes: +ASPI-1265 PO; +ATOR-2 PO; +BUPR-317 PO; +CARV-50 PO; +CITA20TA28 PO; +HYDR-3686 PO; +ISOS30TA84 PO; -PRED5DRO23 RIGHTEYE; +RANO500T3 PO; -VIG0.5OS RIGHTEYE
[2020-05-28 15:11] VITALS: BP 116/79
== END 2020-05-28 15:12 | disposition home or self-care (01) ==
LOC: ER 13:31
DX: M25.562 Pain in left knee (principal); M25.511 Pain in right shoulder; R06.02 Shortness of breath; R07.89 Other chest pain; Z72.89 Other problems related to lifestyle; Z79.82 Long term (current) use of aspirin; Z79.899 Other long term (current) drug therapy; W19.XXXA Unspecified fall, initial encounter; Y93.89 Activity, other specified; Y92.89 Other specified places as the place of occurrence of the external cause; Y99.8 Other external cause status
CPT/HCPCS: 73030; 73564; 99284